=== PATIENT | male | born 1950 ===

== ENCOUNTER 2022-09-16 06:00 | Day surgery (SDC) | payer OTHER ==
[2022-09-16] MEDS ORDERED: PERCOCET 5-3251 EACH PO (09:52)
== END 2022-09-16 14:20 | disposition home or self-care (01) ==
LOC: CIR.AMB 06:00
PROVIDERS: ATTEND Surgery
DX: C73 Malignant neoplasm of thyroid gland (principal); Z20.822 Contact with and (suspected) exposure to COVID-19